=== PATIENT | female | born 1980 ===

== ENCOUNTER 2022-10-08 09:30 | Inpatient (IN) | payer OTHER ==
[2022-10-08] MEDS ORDERED: DEXTROSE 5%-LACTATED RINGERS 1,000 ML IV SCH (10:30)
[2022-10-08] MEDS ORDERED: OXYTOCIN 20 UNITS in 0.9% NS 20 UNIT/1,000 ML INFUS.BAG IV ONE (10:56)
[2022-10-08] MEDS ORDERED: LIDOCAINE HCL 1% PRESERVATIVE FREE - 30ML VIAL ONE (10:56)
[2022-10-08] MEDS ORDERED: SODIUM CHLORIDE 500 ML IV STA (11:15)
[2022-10-08] MEDS ORDERED: BENZOCAINE 20% 57 GM BOTTLE TP PRN (11:52)
[2022-10-08] MEDS ORDERED: WITCH HAZEL 50% (TUCKS) 40 PAD/JAR PAD TP PRN (11:52)
[2022-10-08] MEDS ORDERED: BENZOCAINE 28 GM HEMORRHOIDAL OINTMENT TP PRN (11:52)
[2022-10-08] MEDS ORDERED: ACETAMINOPHEN 325 MG TABLET (FP) PO PRN (11:52)
[2022-10-08] MEDS ORDERED: OXYTOCIN 20 UNITS in 0.9% NS 20 UNIT/1,000 ML INFUS.BAG IV SCH (12:00)
[2022-10-08 12:20] LABS: CORD BASE EXCESS -2.4 mmol/L (0-2); CORD HCO3 23.4 mmHg (20-29); CORD PCO2 43.7 mmHg (30-78); CORD pH 7.346 (7.14-7.44)
[2022-10-08 12:29] VITALS: BMI 35.2
[2022-10-08 12:29] LABS: HEMATOCRIT 37.4 % (32.4-45.2); HEMOGLOBIN 12.2 GM/dL (10.7-15.3); MCH 30.1 pg (25.7-33.7); MCHC 32.7 g/dl (32.0-36.0); MEAN CELL VOLUME 92.1 fl (80-96); MEAN PLT VOLUME 11.3 fl (7.5-11.1); PLATELET COUNT 180 10^3/uL (134-434); RBC 4.06 M/mm3 (3.60-5.2); RDW 13.9 % (11.6-15.6)
[2022-10-08 12:43] LABS: INR 0.89 (0.83-1.09); PROTHROMBIN TIME (PATIENT) 10.2 SEC (9.7-13.0)
[2022-10-08 12:46] LABS: ACTIVATED PTT 27.5 SECONDS (25.2-36.5)
[2022-10-08 12:48] LABS: CALCIUM 8.4 mg/dL (8.5-10.1)
[2022-10-08 12:49] LABS: BLOOD UREA NITROGEN 10.2 mg/dL (7-18)
[2022-10-08 12:52] LABS: CREATININE 0.5 mg/dL (0.55-1.3)
[2022-10-08] MEDS: FERROUS SO4 325 MG TABLET (FP) PO SCH ×2 (13:00→17:37)
[2022-10-08] MEDS: IBUPROFEN 600 MG TABLET (FP) PO PRN ×3 (13:00→21:54)
[2022-10-08 13:05] LABS: ANISOCYTOSIS 2+; MACROCYTOSIS 0
[2022-10-08] MEDS ORDERED: FERROUS SO4 325 MG TABLET (FP) ONE (13:09)
[2022-10-08] MEDS ORDERED: IBUPROFEN 600 MG TABLET (FP) PO ONE (13:10)
[2022-10-09] MEDS: IBUPROFEN 600 MG TABLET (FP) PO PRN ×4 (05:55→22:28)
[2022-10-09 09:25] LABS: BASO % 0.4 % (0-2.0); EOS % 0.4 % (0-4.5); HEMATOCRIT 33.6 % (32.4-45.2); HEMOGLOBIN 11.1 GM/dL (10.7-15.3); LYMPH % 18.5 % (8-40); MCH 30.9 pg (25.7-33.7); MCHC 33.2 g/dl (32.0-36.0); MEAN CELL VOLUME 92.9 fl (80-96); MEAN PLT VOLUME 10.6 fl (7.5-11.1); MONO % 5.1 % (3.8-10.2); NEUT % 75.6 % (42.8-82.8); PLATELET COUNT 158 10^3/uL (134-434); RBC 3.61 M/mm3 (3.60-5.2); WHITE BLOOD COUNT 9.8 K/mm3 (4.0-10.0)
[2022-10-09] MEDS: FERROUS SO4 325 MG TABLET (FP) PO SCH ×3 (09:55→17:52)
[2022-10-09] MEDS: PRENATAL VITAMINS W/ FOLIC ACID TABLET (FP) PO SCH (11:26)
[2022-10-10] MEDS: IBUPROFEN 600 MG TABLET (FP) PO PRN (06:09)
[2022-10-10 09:32] VITALS: BP 136/77; PULSE 78; RESP 16; TEMP 98.1
[2022-10-10] MEDS: PRENATAL VITAMINS W/ FOLIC ACID TABLET (FP) PO SCH (10:05)
[2022-10-10] MEDS: FERROUS SO4 325 MG TABLET (FP) PO SCH ×2 (10:05→11:50)
== END 2022-10-10 13:25 | disposition home or self-care (01) | DRG 560 ==
LOC: JDEL 09:30 → JLDR 10:00 → J3W 14:15
PROVIDERS: ADMIT Obstetrics & Gynecology Maternal & Fetal Medicine; ATTEND Obstetrics & Gynecology Maternal & Fetal Medicine
PROC: 10E0XZZ Delivery of Products of Conception, External Approach (ICD-10-PCS; principal; 2022-10-08)
DX: O24.429 Gestational diabetes mellitus in childbirth, unspecified control (principal); O99.214 Obesity complicating childbirth; E66.9 Obesity, unspecified; Z3A.38 38 weeks gestation of pregnancy; Z37.0 Single live birth
CPT/HCPCS: 36415; 36600; 59409; 80048; 82803; 82962; 85025; 85610; 85730; 86850; 86900; 86901; C9803-CS; U0003; U0005